=== PATIENT | male | born 1965 | race Caucasian/White ===

== ENCOUNTER 2017-02-04 14:52 | Emergency (ER) | payer OTHER, MEDICAID ==
[2017-02-04 15:14] VITALS: BP 122/79
[2017-02-04] MEDS ORDERED: Bacitracin Oint 1 GM U/D Packet TOP ONE (15:19)
[2017-02-04] MEDS ORDERED: Lidocaine 1% 30 ML SDV INJECT ONE (15:19)
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
== END 2017-02-04 15:51 | disposition home or self-care (01) ==
LOC: DL.ED 14:52
DX: S61.011A Laceration without foreign body of right thumb without damage to nail, initial encounter (principal); F17.210 Nicotine dependence, cigarettes, uncomplicated; X58.XXXA Exposure to other specified factors, initial encounter
CPT/HCPCS: 12001; 99283; L3999

== ENCOUNTER 2018-04-30 05:54 | Day surgery (SDC) | payer MEDICAID, OTHER ==
[2018-04-30] MEDS ORDERED: Propofol 200 MG/20 ML SDV IV ONE (05:55)
[2018-04-30] MEDS ORDERED: Dextrose 5%-0.45% NaCl 1,000 ML IV SCH (06:00)
[2018-04-30] MEDS ORDERED: Sodium Chloride 0.9% 10 ML Syringe FLUSH PRN (06:00)
[2018-04-30 09:42] VITALS: BP 125/75
--- NOTE | 2018-04-30 13:04 | OR ---
DATE: 04/30/2018 PROCEDURES: Total colonoscopy, narrow-band imaging, and cold snare polypectomy. INSTRUMENT USED: CF-H180 AL Olympus video colonoscope. PREMEDICATIONS: Provided by Anesthesiology Services. INDICATION: Screening colonoscopic examination is done for detection of any polypoid lesions and removal. Endoscopic hemostasis therapy if needed. DESCRIPTION OF PROCEDURE: Initial rectal exam was unremarkable. Rigid anoscopy showed small internal hemorrhoids without bleeding from them. The colonoscope was passed with ease up to the ileocecal area. Photographs were taken of the normal-appearing cecum identified by the landmarks of appendiceal orifice and double-bulged ileocecal folds. No bleeding was noted from any of the visualized areas at the commencement of the examination. The bowel preparation was found to be adequate. No stricture. No vascular ectasia. No large isolated ulcerations seen. No evidence of diffuse inflammatory bowel disease in the form of friability, contact bleeding, or ulcerations. Probing the proximal sides of folds and flexures using adequate distention and clearing up the stool material, withdrawal of the scope was made. In the distal descending colon, 5-mm sized benign-appearing polyp was noted. NBI views were obtained. Photographs were taken. Cold snare polypectomy was done, and the tissue was retrieved and sent for histopathology. No bleeding was noted from any of the visualized areas at the completion of examination. IMPRESSION: Descending colon polyp. The patient tolerated the procedure well. [facility] /[id number]
--- NOTE | 2018-04-30 13:55 | LETTER ---
04/30/2018 Yvette Pro MD [address] [id number] RE: RAYMON SARMIENTO : [address] Pro: Mr. Raymon Sarmiento had a colonoscopic examination done this morning and he tolerated the procedure well. I herewith send a copy of the endoscopy note and photographs for your review. Thank you. Sincerely, [facility] /[id number]
== END 2018-04-30 09:15 | disposition home or self-care (01) ==
LOC: DL.ENDO 05:54
PROVIDERS: ATTEND Internal Medicine Gastroenterology
DX: Z12.11 Encounter for screening for malignant neoplasm of colon (principal); D12.4 Benign neoplasm of descending colon; K64.8 Other hemorrhoids; F17.210 Nicotine dependence, cigarettes, uncomplicated
CPT/HCPCS: J2704; J7042